=== PATIENT | female | born 1970 | race Two or more races ===

== ENCOUNTER → 2016-07-28 | Outpatient (CLI) | payer BC ==
--- NOTE | 2016-07-28 11:54 | RAD ---
Exam: PA and lateral chest radiograph History: Dyspnea for 2 days, cough. Comparison: None. Findings: Cardiomediastinal silhouette is within normal limits for size. Bilateral lung taveras are free of focal infiltrate. No pleural effusion is seen. Impression: No acute cardiopulmonary process.
== END | disposition home or self-care (01) ==
LOC: DXRADRC 11:41
PROVIDERS: ATTEND Physician Assistant
DX: R05 Cough (principal); R06.00 Dyspnea, unspecified
CPT/HCPCS: 71020

== ENCOUNTER → 2016-10-20 | Outpatient (CLI) | payer BC ==
--- NOTE | 2016-10-20 12:37 | RAD ---
INDICATION: LBP, RIGHT HIP GROIN PAIN, X 1 MONTH, NKI, NO SURGERY COMPARISON: None. IMPRESSION: Lumbar spine: 6 views obtained. Degenerative changes are seen throughout the lumbar spine including facet hypertrophy which is most severe in the lower lumbar spine. No definite acute fracture or dislocation.
--- NOTE | 2016-10-20 12:40 | RAD ---
INDICATION: LBP, RIGHT HIP GROIN PAIN, X 1 MONTH, NKI, NO SURGERY COMPARISON: None. IMPRESSION: Right hip: 2 views obtained without acute fracture or dislocation. There is not a large amount of degenerative changes within the limits of plain film.
== END | disposition home or self-care (01) ==
LOC: DXRADRC 12:03
PROVIDERS: ATTEND Physician Assistant
DX: M54.17 Radiculopathy, lumbosacral region (principal); M25.551 Pain in right hip; R10.30 Lower abdominal pain, unspecified
CPT/HCPCS: 72110; 73502

== ENCOUNTER → 2017-01-11 | Outpatient (CLI) | payer BC ==
--- NOTE | 2017-01-11 14:15 | RAD ---
DATE: 01/11/17 EXAM: DIGITAL SCREEN BILAT W/CAD HISTORY: Routine screening COMPARISON: No priors This study was interpreted with the benefit of Computerized Aided Detection (CAD). TECHNIQUE: Routine CC and MLO views of both breasts are obtained. FINDINGS: Breast Density: SCATTERED The breast parenchyma shows scattered fibroglandular densities. Breast parenchyma level B. . There is a group of punctate calcifications in the right upper breast. There is no architectural distortion. Benign-appearing calcifications in the left breast IMPRESSION: Probable punctate calcifications in the right upper breast at 12:00 position, approximately 3 cm from the nipple. Evaluation with CC and mediolateral spot magnification views may be obtained. BI-RADS CATEGORY: 0 INCOMPLETE: NEED ADDITIONAL IMAGING EVALUATION AND/OR PRIOR MAMMOGRAMS FOR COMPARISON. RECOMMENDED FOLLOW-UP: ADD ADDITIONAL IMAGING PQRS compliance statement: Patient information was entered into a reminder system with a target due date for the next mammogram. Mammography is a sensitive method for finding small breast cancers, but it does not detect them all and is not a substitute for careful clinical examination. A negative mammogram does not negate a clinically suspicious finding and should not result in delay in biopsying a clinically suspicious abnormality. "Our facility is accredited by the [employer] Mammography Program."
== END | disposition home or self-care (01) ==
LOC: MAMMO 09:40
PROVIDERS: ATTEND Physician Assistant
DX: Z12.31 Encounter for screening mammogram for malignant neoplasm of breast (principal)
CPT/HCPCS: G0202; 77067